=== PATIENT | female | born 1995 | race Caucasian/White ===

== ENCOUNTER 2018-09-10 04:05 | Emergency (ER) | payer OTHER ==
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
[2018-09-10 04:24] VITALS: BP 113/72; PULSE 93; TEMP 98.3; BMI 27.4
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
== END 2018-09-10 05:17 | disposition home or self-care (01) ==
LOC: JER 04:05
DX: S09.8XXA Other specified injuries of head, initial encounter (principal); S16.1XXA Strain of muscle, fascia and tendon at neck level, initial encounter; Y04.2XXA Assault by strike against or bumped into by another person, initial encounter; Y93.89 Activity, other specified; Y92.59 Other trade areas as the place of occurrence of the external cause; Y99.8 Other external cause status; W03.XXXA Other fall on same level due to collision with another person, initial encounter
CPT/HCPCS: 99281-25